=== PATIENT | male | born 1980 | race Caucasian/White ===

== ENCOUNTER 2017-09-25 18:13 | Emergency (ER) | payer OTHER ==
[~2017-09-25] VITALS: Ht 172.7 cm; Wt 106.3 kg
[~2017-09-25 18:13] MED LIST: ALBUTEROL SULF8.5 GM IH; BENZTROPINE MESY2 MG PO; COGENTIN1 MG PO; COGENTIN2 MG PO; DEPAKOTE ER250 MG PO; DESYREL 150 MG150 MG PO; DIVALPROEX SOD500 M1 PO; EFFEXOR75 MG PO; FAMOTIDINE20 MG PO; GLUCOPHAGE500 MG PO; HALDOL5 MG PO; HALOPERIDOL10 MG PO; HYDROXYZINE HCL50 MG PO; METFORMIN HCL500 MG PO; MILK OF MAGNESI10 ML PO; PANTOPRAZOLE SO40 MG PO; PERPHENAZINE8 MG PO; PRILOSEC40 MG PO; RANITIDINE HCL150 MG PO; TRAZODONE HCL150 MG PO; TYLENOL REGULA325 MG PO; VENTOLIN HFA18 GM IH
[2017-09-25 18:54] LABS: HEMATOCRIT 40.9 % (38.0-50.0); HEMOGLOBIN 13.6 G/DL (12.5-16.6); MCH 29.1 PG (29.0-34.0); MCHC 33.3 G/DL (30.0-36.0); MCV 87.4 FL (86-99); PLATELET COUNT 181 K/uL (156-360); RBC DIS.WIDTH-CV 13.2 % (11.8-14.6); RBC DIS.WIDTH-SD 42.6 % (39-53); RED BLOOD COUNT 4.68 M/uL (4.00-5.50); WHITE BLOOD COUNT 17.5 K/uL (4.1-10.2)
[2017-09-25 18:58] LABS: ALBUMIN 4.2 g/dL (3.2-4.8); CHLORIDE 105 mEq/L (99-109); POTASSIUM 4.8 mEq/L (3.7-5.4); SODIUM 137 mEq/L (136-147)
[2017-09-25 19:00] LABS: GLUCOSE 121 mg/dL (70-99); TOTAL PROTEIN 7.5 g/dL (6.4-8.3)
[2017-09-25 19:02] LABS: TOTAL BILIRUBIN 0.6 mg/dL (0.0-1.0)
[2017-09-25 19:03] LABS: SERUM ETHYL ALCOHOL < 10 mg/dL
[2017-09-25 19:04] LABS: CREATININE 1.6 mg/dL (0.6-1.3); GFR ESTIMATE (CALCULATED) 52 mL/min/ (58.99-99999)
[2017-09-25 19:05] LABS: ALKALINE PHOSPHATASE 85 IU/L (3-129)
[2017-09-25 19:06] LABS: AST (GOT) 98 IU/L (2-34); UREA NITROGEN (BUN) 20 mg/dL (9-23)
[2017-09-25 19:07] LABS: SALICYLATE < 5.0 MG/DL (15-30)
[2017-09-25 19:08] LABS: ACETAMINOPHEN (TYLENOL) < 10 mcg/mL (10-30); ALT (GPT) 69 IU/L (3-49)
[2017-09-25 19:44] LABS: APPEARANCE CLEAR ((CLEAR)); BILIRUBIN NEGATIVE; BLOOD SMALL; COLOR YELLOW ((YELLOW)); GLUCOSE (STRIP) 50; KETONES 5; LEUKOCYTES NEGATIVE; NITRITE NEGATIVE; PROTEIN (STRIP) 100; SPECIFIC GRAVITY 1.013 (1.000-1.030); UROBILINOGEN 0.2 MG/DL (0.2-1.0)
[2017-09-25 19:51] LABS: BACTERIA NONE SEEN /HPF; EPITHELIAL CELLS RARE /HPF; HYALINE CASTS 0-5 /LPF; MUCUS TRACE /LPF; RED BLOOD CELLS 0-5 /HPF (0-5); WHITE BLOOD CELLS 0-5 /HPF (0-5)
[2017-09-25 19:54] LABS: COCAINE NEGATIVE (150 ng/mL); METHAMPHETAMINE NEGATIVE (500 ng/mL); OPIATES (MORPHINE) NEGATIVE (100 ng/mL); PHENCYCLIDINE NEGATIVE (25 ng/mL); THC CANNABINOIDS NEGATIVE (50 ng/mL)
[2017-09-25 19:55] LABS: AMPHETAMINE NEGATIVE (500 ng/mL); BARBITURATES NEGATIVE (200 ng/mL); BENZODIAZEPINES NEGATIVE (150 ng/mL); BUPRENORPHINE NEGATIVE (10 ng/mL); METHADONE NEGATIVE (200 ng/mL); OXYCODONE NEGATIVE (100 ng/mL); PROPOXYPHENE NEGATIVE (300 ng/mL); TRICYCLIC ANTIDEPRESSANTS NEGATIVE (300 ng/mL)
[2017-09-25 20:14] LABS: THYROTROPIN (TSH) 5.2 MIU/L (0.4-5.5)
[2017-09-25 22:00] LABS: BASE EXCESS -11.1 mEq/L (-3 to +3); BICARBONATE 14.8 mEq/L (22-26); CARBOXY HGB 1.1 % (0-5); COMMENTS - BLOOD GASES C+; METHEMOGLOBIN 0.6 % (0-1.5); PCO2 33 mm Hg (35-45); PO2 93 mm Hg (80-100); SITE RR; pH 7.26 (7.35-7.45)
[2017-09-25 22:01] LABS: FI02 21 %; TOTAL RESP RATE 23 resp/min
[2017-09-25 22:25] VITALS: BP 128/68
== END 2017-09-25 22:30 | disposition short-term general hospital (02) ==
LOC: EME 18:13
PROVIDERS: Emergency Medicine
DX: T38.3X2A Poisoning by insulin and oral hypoglycemic [antidiabetic] drugs, intentional self-harm, initial encounter (principal); T38.1X2A Poisoning by thyroid hormones and substitutes, intentional self-harm, initial encounter; T39.012A Poisoning by aspirin, intentional self-harm, initial encounter; E11.649 Type 2 diabetes mellitus with hypoglycemia without coma; E87.2 Acidosis; Z79.84 Long term (current) use of oral hypoglycemic drugs; I10 Essential (primary) hypertension; F41.9 Anxiety disorder, unspecified; F32.9 Major depressive disorder, single episode, unspecified; J45.909 Unspecified asthma, uncomplicated; K21.9 Gastro-esophageal reflux disease without esophagitis; Z88.0 Allergy status to penicillin; Z91.040 Latex allergy status; Z87.891 Personal history of nicotine dependence
CPT/HCPCS: 36600; 80053; 81003; 82803; 82948; 83605; 84443; 85027; 93005; 99281; 99285; G0480